=== PATIENT | male | born 1995 | race Caucasian/White ===

== ENCOUNTER 2017-03-24 16:52 | Emergency (ER) | payer SELFPAY ==
[~2017-03-24] VITALS: Ht 185.4 cm; Wt 70.5 kg
[2017-03-24 17:09] VITALS: BP 106/62; PULSE 68; TEMP 98.4
== END 2017-03-24 17:28 | disposition left against medical advice (07) ==
LOC: COL.ER 16:52
DX: R20.0 Anesthesia of skin (principal)